=== PATIENT | female | born 1955 | race Caucasian/White ===

== ENCOUNTER 2017-01-19 10:43 | Outpatient (CLI) | payer MEDICARE ==
[~2017-01-19] VITALS: Ht 165.1 cm; Wt 69.1 kg
--- NOTE | ~2017-01-19 | HEMODYNAMI ---
PATIENT:DEDRA ISAACS MEDICAL RECORD: [id number] : 51 LOCATION:[facility] ADMISSION DATE: 01/19/17 Generatedon:01/19/201714:49 Patient name: DEDRA ISAACS Patient #: [id number] : 1955 Date of study: 01/19/2017 Page: Of Hemodynamic Procedure Report Patient Data Patient Demographics Procedure consent was obtained First Name: DEDRA Gender: Female Last Name: EFRNY : 1955 Patient #: [id number] Age: 61 year(s) Race: SSN: [id number] Additional ID: [id number] Contact details Address: [place] [address] State: [place] City: [place] Zip code: [address] Past Medical History Allergies Allergen Reaction Date Comments Reported Other allergy 01/19/2017 see chart Admission Admission Data Admission Date: 01/19/2017 Admission Time: 10:43 Arrival Date: 01/19/2017 Arrival Time: 14:00 Admit Source: Other Insurance Payor: Medicare Height (in.): 65 BSA: 1.79 (m2) Height (cm.): 165.1 BMI: 26.29 (kg/m2) Weight (lbs.): 158 Weight (kg.): 71.67 Lab Results Lab Result Date: 01/19/2017 Lab Result Time: 0:00 Biochemistry Name Units Result Min Max BUN mg/dl 19 --(----)*- 7 18 Creatinine mg/dl 0.8 --(-*--)-- 0.6 1.3 CBC Name Units Result Min Max Hemoglobin g/dl 13 -*(----)-- 13.5 17.5 Procedure Procedure Types Cath Procedure Diagnostic Procedure LHC LHC w/Coronaries Miscellaneous Procedures Moderate Sedation up to 15 minutes Procedure Description Procedure Date Procedure Date: 01/19/2017 Procedure Start Time: 14:37 Procedure End Time: 14:46 Procedure Staff Name Function Juan F Wilson MD Performing Physician Avis Gomes RT Scrub Bubba Nieves RN Nurse Radha Donahue RT Monitor Indication Angina Procedure Data Cath Procedure Fluoroscopy Diagnostic fluoroscopy Total fluoroscopy Time: 1 time: 1 min min Diagnostic fluoroscopy Total fluoroscopy dose: dose: 85.31 mGy 85.31 mGy Contrast Material Contrast Material Type Amount (ml) Isovue 370 55 Entry Location Entry Primary Successful Side Size Upsize Upsize Entry Closure Succes sful Closure Location (Fr) 1 (Fr) 2 (Fr) Remarks Device Remarks Femoral Right 5 Fr Exoseal artery Estimated blood loss: 5 ml Diagnostic catheters Device Type Used For End Catheter Placement Cordis 5Fr JL 4.0 Left Coronary Catheter (MP) Angiography Cordis 5Fr 3DRC Catheter Right Coronary (MP) Angiography Cordis 5Fr Pigtail LV Angiography Catheter (MP) Procedure Complications No complications Procedure Medications Medication Administration Route Dosage Oxygen NC 2 l/min Lidocaine 2% added to field 20 Heparin Flush Bag added to field 2 bags (1000units/500ml NS) 0.9% NaCl I.V. 100 ml/hr Versed I.V. 1 mg Fentanyl I.V. 50 mcg Versed I.V. 0.5 mg Fentanyl I.V. 25 mcg Hemodynamics Rest BSA: 1.79 (m2) HGB: 13 (g/dl) O2 Consumption: Estimated: 171.12 (ml/min) O2 Cons umption indexed: Estimated:95.6 (ml/min/m) Heart Rate: 74 (bpm) Pressure Samples Time Site Value (mmHg) Purpose Heart Use Rate(bpm) 14:42 LV 135/18,14 Snapshot 101 Gradients Valve Time Site Site Mean SEP/DFP Peak To Heart Use 1 2 (mmHg) (sec/min) Peak Rate (mmHg) (bpm) Aortic 14:43 LV AO 100 Snapshots Pre Cath Intra NCS Post Cath Vital Signs Time Heart Resp SPO2 NIBP (mmHg) Rhythm Pain Sedation Rate (ipm) (%) Status Level (bpm) 14:24:09 89 16 100 165/99(148) NSR 0 (11) 10(A) , No pain 14:28:25 93 19 100 163/94(126) NSR 0 (11) 10(A) , No pain 14:32:43 97 15 100 166/91(130) NSR 0 (11) 10(A) , No pain 14:37:03 92 19 99 168/91(122) NSR 0 (11) 10(A) , No pain 14:41:19 93 23 98 159/93(123) NSR 0 (11) 10(A) , No pain 14:45:35 97 17 99 160/93(135) NSR 0 (11) 10(A) , No pain Medications Time Medication Route Dose Verified Delivered Reason Notes Effe ctiveness by by 14:25:05 Oxygen NC 2 Juan F Shefaliie used for l/min [facility] Max[facility] Nieves RN procedure 14:25:12 Lidocaine 2% added 20ml Juan F Juan F for local to vial [facility] anesthetic field MD ESTES 14:25:17 Heparin Flush added 2 Juan F Juan F used for Bag to bags [facility] procedure (1000units/500ml field MD ESTES NS) 14:25:27 0.9% NaCl I.V. 100 Juan F Mac Per ml/hr [facility] Nieves RN physician 14:32:20 Versed I.V. 1 mg Juan F Mac for [facility] Max[facility] Nieves RN sedation 14:32:26 Fentanyl I.V. 50 Juan F Meehanie for mcg [facility] Max[facility] Nieves RN sedation 14:40:43 Versed I.V. 0.5 Juan F Mac for mg [facility] Max[facility] Nieves RN sedation 14:40:49 Fentanyl I.V. 25 Juan F Meehanie for mcg [facility] Max[facility] Nieves RN sedation Procedure Log Time Note 14:00:18 Bubba Nieves RN sent for patient. Start room use. 14:01:48 Informed consent obtained and on chart 14:01:56 Diagnostic Cath Status : Elective 14:02:19 Indication : Angina 14:03:29 Admit Source: Other 14:03:31 Arrival Date: 01/19/2017 2:00:00 PM 14:03:41 Insurance Payor : Medicare 14:05:31 Patient Height : 165.1 inches 14:05:35 Patient Weight : 71.67 lbs 14:11:50 Lab Result : Creatinine 0.8 mg/dl 14:11:50 Lab Result : BUN 19 mg/dl 14:11:50 Lab Result : Hemoglobin 13 g/dl 14:12:24 Time tracking: Regular hours 14:12:29 Plan of Care:Hemodynamics will remain stable., Cardiac rhythm will remain stable., Comfort level will be maintained., Respiratory function will remain adequate., Patient/ family verbilizes understanding of procedure., Procedure tolerated without complication., Recovers from procedure without complications.. 14:15:43 Patient received from Pre/Post Procedure Room to CCL 3 Alert and oriented. Tansferred to table in Supine position. 14:15:44 Warm blankets applied, and nidia hugger turned on for patient comfort. 14:15:45 Correct patient and procedure confirmed by team. 14:15:49 ECG and BP/O2 sat monitors applied to patient. 14:22:34 H&P Date Dictated: 01/13/2017 Within 30 days and on chart., H&P Addendum completed by physician on day of procedure. (MUST COMPLETE FOR ALL OUTPATIENTS). 14:22:36 Pre-procedure instructions explained to patient. 14:22:38 Family in waiting room. 14:22:40 Patient NPO since Midnight. 14:22:57 Patient allergic to Other allergysee chart 14:23:01 Vital chart was started 14:23:10 Rhythm: sinus rhythm 14:23:13 Full Disclosure recording started 14:23:31 Is the patient allergic to Iodine/contrast media? No. 14:23:36 Was the patient premedicated? No 14:23:37 Is patient on blood thinner?No 14:23:52 Patient diabetic? Yes. 14:24:05 If diabetic: On Metformin? Yes 14:24:08 If on Metformin: Last Dose? 01/17/2017 14:24:14 Snore? No 14:24:15 Sleep apnea? No 14:24:22 Dentures? Yes tight 14:24:32 IV patent on arrival in left forearm with 0.9% NaCl at KVO. 14:24:37 Lab results completed and on chart. 14:24:41 Right groin area was prepped with chlora-prep and draped in sterile fashion 14:24:45 Alarms reviewed by R. N. 14:24:45 Sharps counted by scrub and verified by R.N. 14:24:48 Physician paged 14:25:05 Oxygen 2 l/min NC was given by Bubba Nieves RN; used for procedure; 14:25:12 Lidocaine 2% 20ml vial added to field was given by Juan F Wilson MD; for local anesthetic; 14:25:17 Heparin Flush Bag (1000units/500ml NS) 2 bags added to field was given by Juan F Wilson MD; used for procedure; 14:: 0.9% NaCl 100 ml/hr I.V. was given by Bubba Nieves RN; Per physician; :29:30 Physician arrived 14::31 --------ALL STOP TIME OUT------ 14::31 Final Timeout: patient, procedure, and site verified with staff and physician. All members of the team are in agreement. 14:29:33 Right groin site verified by team. 14:29:36 Physical assessment completed. ASA score P 2 - A patient with mild systemic disease as per Juan F Wilson MD. 14:29:41 Sedation plan: IV Moderate Sedation Versed, Fentanyl 14:30:20 Use device set Femoral Dx 14:30:21 Acist Syringe opened to sterile field. 14:30:22 Bag Decanter opened to sterile field. 14:30:22 Medline Cath Pack opened to sterile field. 14:30:23 Terumo 5Fr Custer Sheath opened to sterile field. 14:30:23 St Akhil 260cm J .035 wire opened to sterile field. 14:30:24 Acist Hand Control opened to sterile field. 14:30:25 Acist Manifold opened to sterile field. 14:30:25 Diagnostic Infinity 5Fr Multipack catheter opened to sterile field. 14:30:26 Tegaderm 4 x 4 opened to sterile field. 14:32:20 Versed 1 mg I.V. was given by Bubba Nieves RN; for sedation; 14:32:26 Fentanyl 50 mcg I.V. was given by Bubba Nieves RN; for sedation; 14:33:59 Zero performed for pressure channel P1 14:34:08 Zero performed for pressure channel P1 14:34:14 Zero performed for pressure channel P1 14:35:04 Baseline sample Acquired. 14:37:30 Procedure started. 14:37:36 Local anesthetic to right femoral artery with Lidocaine 2% by Juan F Wilson MD.INITIAL ACCESS ONLY 14:37:44 A 5 Fr sheath was inserted into the Right Femoral artery 14:38:22 A Cordis 5Fr JL 4.0 Catheter (АННА) was advanced over the wire and used for Left Coronary Angiography. 14:39:27 LCA angiography performed. 14:39:30 Injector settings: Ml/sec: 3, Volume: 6, 14:40:22 Catheter removed. 14:40:27 A Cordis 5Fr 3DRC Catheter (MP) was advanced over the wire and used for Right Coronary Angiography. 14:40:43 Versed 0.5 mg I.V. was given by Bubba Nieves RN; for sedation; 14:40:49 Fentanyl 25 mcg I.V. was given by Bubba Nieves RN; for sedation; 14:41:17 RCA angiography performed. 14:41:21 Injector settings: Ml/sec: 3, Volume: 6, 14:41:46 Catheter removed. 14:42:12 A Cordis 5Fr Pigtail Catheter (MP) was advanced over the wire and used for LV Angiography. 14:42:50 LV hemodynamics recorded. 14:42:51 LV gram done using MORA 14:42:54 Injector settings: Ml/sec: 5, Volume: 15, 14:43:24 EF : 55 % 14:43:28 Catheter removed. 14:43:36 Cordis 5Fr Exoseal opened to sterile field. 14:44:06 Sheath removed intact; hemostasis achieved with Exoseal to the Right Femoral artery. 14:44:07 Procedure ended.(Physican Out) 14:44:45 Fluoroscopy time 01.00 minutes. 14:44:49 Fluoroscopy dose: 85.31 mGy 14:44:49 Flurop Dose total: 85.31 14:44:55 Contrast amount:Isovue 370 55ml. 14:44:57 Sharps counted by scrub and verified by R.N. 14:44:58 Insertion/operative site no bleeding no hematoma. 14:45:03 Post-op/insertion site Right Femoral artery dressed using a 4 x 4 and Tegaderm. 14:45:06 Post right femoral artery:stable 14:45:08 Post Procedure Pulses reassessed and unchanged 14:45:17 Post procedure rhythm: unchanged. 14:45:20 Estimated blood loss: 5 ml 14:45:21 Post procedure instruction explained to patient.Patient verbalizes understanding. 14:45:22 Patient needs reinforcement of post procedure teaching. 14:45:47 Procedure type changed to Cath procedure, Diagnostic procedure, LHC, LHC w/Coronaries, Miscellaneous Procedures, Moderate Sedation up to 15 minutes 14:45:48 Procedure and supply charges have been captured, reviewed, submitted and are correct. 14:45:54 Procedure Complication : No complications 14:45:57 Vital chart was stopped 14:45:57 See physician's report for complete and final results. 14:46:01 Report given to Pre/Post Procedure Room. 14:46:03 Patient transfered to Pre/Post Procedure Room with Stretcher. 14:46:05 Procedure ended. 14:46:05 Full Disclosure recording stopped 14:46:08 End room use (Document Last) Device Usage Item Name Manufacture Quantity Catalog Hospital Part Current Minimal Lo t# / Number Charge Number Stock Stock Serial# Code Acist Acist 1 [id number] [id number] 638228 [id number] 20 Syringe [employer] Bag Microtek 1 2002S 593768 76082 112370 5 Decanter [employer] Medline Cardinal 1 [id number] 432080 29742 207250 5 Cath Pack Health Terumo 5Fr Terumo 1 [id number] 671839 099140 448757 [address] Ak[address] Akhil 1 026236 149500 895524 626494 30 260cm J .035 wire Acist Hand Acist 1 97585 616543 017163 783754 5 Control [employer] Inc Acist Acist 1 74628 939877 379287 474813 5 Manifold [employer] Inc Diagnostic Cardinal 1 [id number] 952050 84041 599741 30 Infinity Health 5Fr Multipack catheter Tegaderm 4 3M 1 1626W 475500 463559 840422 5 x 4 Cordis 5Fr Cardinal 1 582643 5 JL 4.0 Health Catheter (MP) Cordis 5Fr Cardinal 1 953001 5 3DRC Health Catheter (MP) Cordis 5Fr Cardinal 1 723757 5 Pigtail Health Catheter (MP) Cordis 5Fr Cardinal 1 EX500 557581 595549 549581 10 [employer] Signature Audit [place] Stage Time Signature Unsigned Intra-Procedure 01/19/2017 Radha Donahue 2:49:10 PM RT(R) Signatures Monitor : Radha Donahue RT Signature : Date : Time : [facility] [address] [place] [address]
[2017-01-19] MEDS ORDERED: GLUCOPHAGE1000 MG PO (11:53)
[2017-01-19] MEDS ORDERED: LOSARTAN POTASS25 MG PO (11:54)
[2017-01-19] MEDS ORDERED: TIROSINT88 MCG PO (11:54)
[2017-01-19] MEDS ORDERED: CINNAMON500 MG PO (11:56)
[2017-01-19 12:02] VITALS: BP 146/72; Ht 165.1 cm; Wt 69.1 kg
[2017-01-19 12:36] LABS: BASOPHILS 0.5 % (0.0-2.0); EOSINOPHILS 3.4 % (0-7); HEMATOCRIT 38.4 % (36.0-48.0); LYMPHOCYTES 48.5 % (15-50); MCH 29.8 pg (26.0-34.0); MCHC 33.9 g/dL (31.0-37.0); MCV 88.1 fL (80.0-100.0); MEAN PLATELET VOLUME 11.6 fL (7.4-10.4); MONOCYTES 12.4 % (2-11); NEUTROPHILS 35.2 % (40-80); PLATELET COUNT 120 10x3/uL (130-400); RBC 4.36 10x6/uL (4.00-5.40); RDW 13.2 % (11.5-14.5)
[2017-01-19 13:10] LABS: CALC OSMOLALITY 289 mosm/kg (275-300); CALCIUM 9.3 mg/dL (8.5-10.1); CARBON DIOXIDE 24.3 mmol/L (21.0-32.0); CHLORIDE - SERUM 107 mmol/L (98-107); CREATININE - SERUM 0.8 mg/dL (0.6-1.3); GLUCOSE 121 mg/dL (74-106); POTASSIUM - SERUM 3.9 mmol/L (3.5-5.1); SODIUM 144 mmol/L (136-145); UREA NITROGEN 19 mg/dL (7-18); eGFR NON AFRICAN AMERICAN 77 mL/min (90-120)
--- NOTE | 2017-01-19 16:15 | NUR ---
VSS WITH CHEST PAIN DENIED. 5 FR EXOSEAL R/GROIN CDI NO BLEEDING NO HEMATOMA NOTED.
--- NOTE | 2017-01-19 16:21 | NUR ---
1515-RIGHT GROIN CDI- NO BLEEDING 1545-NO CHANGES TO RIGHT GROIN
--- NOTE | 2017-01-19 16:48 | NUR ---
1645- IV D'C WITH CATH TIP INTACT. RIGHT GROIN CDI, UP GETTING DRESSED, WRITTEN AND VERBAL INSTRUCTIONS GIVEN TO PT AND FRIEND.
--- NOTE | 2017-01-22 10:40 | OP ---
PATIENT NAME: DEDRA ISAACS MEDICAL RECORD: [id number] :51 LOCATION:[facility] ADMISSION DATE: SURGEON: DAMION CAMPBELL MD DATE OF OPERATION: 01/19/2017 PROCEDURE: Left heart catheterization, selective coronary angiography, right femoral approach. CATHETERS: A 5-Indonesian sheath, 5/4 left and right Brenda, 5/4 pig. The procedure was well tolerated. The patient was returned to sanches, sheath removed. Adequate hemostasis was obtained. ExoSeal device was placed. FINDINGS: Left ventriculography in the 30-degree MORA view: Normal wall motion, normal systolic function. CORONARY ANATOMY: Left main: Left main is free of disease. LAD: Lad is free of disease in the diagonal system. CIRCUMFLEX: This is a codominant system, free of disease. RIGHT CORONARY ARTERY: Again, codominant system, free of disease. IMPRESSION: Normal systolic function. Normal coronary anatomy. TRANSINT:[id number] Voice Confirmation ID: [id number] DOCUMENT ID: [id number] DAMION CAMPBELL MD at 1040 CC: [id number] DICTATION DATE: 01/19/17 1451 FILTER BED PLACER: 01/19/17 2235 DEP CLI 01/19/17 [id number] [place] [address]
== END 2017-01-19 17:00 | disposition home or self-care (01) ==
LOC: D.CATH 10:43
PROVIDERS: Internal Medicine Interventional Cardiology
DX: I20.9 Angina pectoris, unspecified (principal)